=== PATIENT | male | born 1965 | race Caucasian/White ===

== ENCOUNTER 2017-05-30 15:54 | Emergency (ER) | payer SELFPAY ==
[~2017-05-30] VITALS: Ht 175.3 cm; Wt 90.7 kg
--- NOTE | 2017-05-30 15:58 | ER Report ---
History and Physical Time Seen By MD: 15:58 Hx. of Stated Complaint: weak, unable to stand HPI/ROS 51 year old male homeless alcohol dependant male, swelling abdomen and legs acute weakness x 1 week, last alcohol last pm Allergies: Coded Allergies: No Known Drug Allergies (Unverified , 05/30/17) Past Medical/Surgical History alcohol abuse Reviewed Nurses Notes: Yes Old Medical Records Reviewed: No Hx Smoking: Yes Exposure to Second Hand Smoke?: No Hx Substance Use Disorder: No Hx Alcohol Use: Yes Family History of: HTN Constitutional Vital Sign - Last 24 Hours 05/30/17 05/30/17 05/30/17 05/30/17 15:54 15:56 15:56 16:00 Temp 99.3 Pulse 131 Resp 20 B/P (MAP) 123/97 (106) 119/91 119/91 (100) 119/90 (100) Pulse Ox 89 O2 Delivery Room Air 05/30/17 05/30/17 05/30/17 05/30/17 16:09 16:15 16:24 16:30 Pulse 126 125 Resp 24 21 B/P (MAP) 123/91 (102) 113/84 (94) 05/30/17 05/30/17 05/30/17 05/30/17 16:39 16:45 17:30 17:39 Pulse 121 222 Resp 26 24 B/P (MAP) 127/95 (106) 131/100 (110) Pulse Ox 97 96 05/30/17 05/30/17 05/30/17 05/30/17 17:45 17:50 18:00 18:15 Pulse 112 Resp 31 B/P (MAP) 117/89 (98) 98/82 (87) 113/92 (99) Pulse Ox 93 05/30/17 05/30/17 05/30/17 05/30/17 18:20 18:30 18:45 18:50 Pulse 103 46 Resp 21 23 B/P (MAP) 106/82 (90) 111/79 (90) Pulse Ox 93 82 05/30/17 05/30/17 05/30/17 05/30/17 19:00 19:15 19:20 19:30 Pulse 117 Resp 23 B/P (MAP) 113/85 (94) 116/84 (95) 119/89 (99) 2/505/30/17 05/30/17 05/30/17 19:45 19:50 20:00 20:15 Pulse 121 Resp 18 B/P (MAP) 124/91 (102) 119/88 (98) 108/76 (87) 05/30/17 05/30/17 05/30/17 05/30/17 20:20 20:30 20:45 20:50 Pulse 119 122 Resp 15 21 B/P (MAP) 102/81 (88) 118/88 (98) Pulse Ox 91 92 05/30/17 21:00 B/P (MAP) 121/84 (96) Intake and Output 05/30/17 05/30/17 05/31/17 15:00 23:00 07:00 Intake Total 75 ml Balance 75 ml Physical Exam 51 year old male anxious skin is pale warm and dry HEENT head normocephalic/ atraumatic tympanic membranes are on reddened throat is non-reddened mucous membranes are dry neck is supple no JVD heart rate regular no murmurs rubs or gallops lungs are decreased bilateral bases abdomen is protuberant ascites has enlarged liver with palpation bowel sounds hypoactive all quadrants does have peripheral edema 2+ edema bilateral lower extremity Medical Decision Making Data Points Result Diagram: 05/30/17 1550 05/30/17 1550 Laboratory Hematology Test 05/30/17 15:50 05/30/17 16:21 05/30/17 16:55 Red Blood Count 4.17 M/uL (4.00-5.60) Mean Corpuscular Volume 104.1 fL (80.0-96.0) Mean Corpuscular Hemoglobin 36.5 pg (26.0-33.0) Mean Corpuscular Hemoglobin Concent 35.0 g/dL (32.0-36.0) Red Cell Distribution Width 14.8 % (11.5-14.5) Mean Platelet Volume 8.7 fL (7.2-11.1) Neutrophils (%) (Auto) 62.5 % (39.4-72.5) Lymphocytes (%) (Auto) 28.1 % (17.6-49.6) Monocytes (%) (Auto) 7.8 % (4.1-12.4) Eosinophils (%) (Auto) 0.1 % (0.4-6.7) Basophils (%) (Auto) 1.5 % (0.3-1.4) Nucleated RBC Relative Count (auto) 0.2 /100WBC Neutrophils # (Auto) 4.0 K/uL (2.0-7.4) Lymphocytes # (Auto) 1.8 K/uL (1.3-3.6) Monocytes # (Auto) 0.5 K/uL (0.3-1.0) Eosinophils # (Auto) 0.0 K/uL (0.0-0.5) Basophils # (Auto) 0.1 K/uL (0.0-0.1) Nucleated RBC Absolute Count (auto) 0.01 K/uL Prothrombin Time 17.9 seconds (12.0-14.4) Prothromb Time International Ratio 1.45 Activated Partial Thromboplast Time 30 seconds (23-35) D-Dimer Quantitative (PE/DVT) 7.14 ug/ml (0-0.50) Sodium Level 135 mmol/L (137-145) Potassium Level 3.7 mmol/L (3.5-5.0) Chloride Level 97 mmol/L (98-107) Carbon Dioxide Level 18 mmol/L (22-30) Blood Urea Nitrogen 2 mg/dl (9-21) Creatinine 0.60 mg/dl (0.66-1.25) Glomerular Filtration Rate Calc > 60.0 Random Glucose 141 mg/dl (75-110) Calcium Level 8.0 mg/dl (8.4-10.2) Magnesium Level 1.6 mg/dl (1.7-2.2) Total Bilirubin 3.8 mg/dl (0.2-1.3) Aspartate Amino Transf (AST/SGOT) 203 U/L (0-35) Alanine Aminotransferase (ALT/SGPT) 40 U/L (0-56) Alkaline Phosphatase 203 U/L (0-126) Ammonia 18 UMOL/L (9-33) B-Type Natriuretic Peptide 60 pg/ml (0-100) Total Protein 8.8 gm/dl (6.3-8.2) Albumin 3.0 g/dl (3.5-5.0) Amylase Level 73 U/L (0-110) Lipase 63 U/L (23-300) Salicylates Level < 10 mg/L Salicylate Last Dose Date unk Acetaminophen Level < 10 ug/ml Serum Alcohol 184 mg/dl Urine Color Pohebe Urine Clarity Clear Urine pH 5.0 pH (4.8-9.5) Urine Specific Elk 1.020 Urine Protein Negative mg/dL (NEGATIVE) Urine Glucose (UA) Negative mg/dL (NEGATIVE) Urine Ketones 20 mg/dL (NEGATIVE) Urine Blood Negative (NEGATIVE) Urine Nitrite Negative (NEGATIVE) Urine Bilirubin Small (NEGATIVE) Urine Urobilinogen 4.0 mg/dL (0.2-1.9) Urine Leukocyte Esterase Negative (NEGATIVE) Urine RBC 1 /HPF (0-2/HPF) Urine WBC 3 /HPF (0-5/HPF) Urine Squamous Epithelial Cells Many /LPF (</=FEW) Urine Bacteria Few /HPF (NONE-FEW) Urine Hyaline Casts Many /LPF (NONE-FEW) Urine Mucus Few /HPF (NONE-FEW) Urine Opiates Screen Negative Urine Barbiturates Screen Negative Ur Tricyclic Antidepressants Screen Negative Urine Phencyclidine Screen Negative Urine Amphetamines Screen Negative Urine Benzodiazepines Screen Negative Urine Cocaine Screen Negative Urine Cannabinoids Screen Negative Chemistry Test 05/30/17 15:50 05/30/17 16:21 05/30/17 16:55 White Blood Count 6.5 k/uL (4.5-11.0) Red Blood Count 4.17 M/uL (4.00-5.60) Hemoglobin 15.2 g/dL (14.0-18.0) Hematocrit 43.4 % (42.0-52.0) Mean Corpuscular Volume 104.1 fL (80.0-96.0) Mean Corpuscular Hemoglobin 36.5 pg (26.0-33.0) Mean Corpuscular Hemoglobin Concent 35.0 g/dL (32.0-36.0) Red Cell Distribution Width 14.8 % (11.5-14.5) Platelet Count 79 K/uL (150-450) Mean Platelet Volume 8.7 fL (7.2-11.1) Neutrophils (%) (Auto) 62.5 % (39.4-72.5) Lymphocytes (%) (Auto) 28.1 % (17.6-49.6) Monocytes (%) (Auto) 7.8 % (4.1-12.4) Eosinophils (%) (Auto) 0.1 % (0.4-6.7) Basophils (%) (Auto) 1.5 % (0.3-1.4) Nucleated RBC Relative Count (auto) 0.2 /100WBC Neutrophils # (Auto) 4.0 K/uL (2.0-7.4) Lymphocytes # (Auto) 1.8 K/uL (1.3-3.6) Monocytes # (Auto) 0.5 K/uL (0.3-1.0) Eosinophils # (Auto) 0.0 K/uL (0.0-0.5) Basophils # (Auto) 0.1 K/uL (0.0-0.1) Nucleated RBC Absolute Count (auto) 0.01 K/uL Prothrombin Time 17.9 seconds (12.0-14.4) Prothromb Time International Ratio 1.45 Activated Partial Thromboplast Time 30 seconds (23-35) D-Dimer Quantitative (PE/DVT) 7.14 ug/ml (0-0.50) Glomerular Filtration Rate Calc > 60.0 Calcium Level 8.0 mg/dl (8.4-10.2) Magnesium Level 1.6 mg/dl (1.7-2.2) Total Bilirubin 3.8 mg/dl (0.2-1.3) Aspartate Amino Transf (AST/SGOT) 203 U/L (0-35) Alanine Aminotransferase (ALT/SGPT) 40 U/L (0-56) Alkaline Phosphatase 203 U/L (0-126) Ammonia 18 UMOL/L (9-33) B-Type Natriuretic Peptide 60 pg/ml (0-100) Total Protein 8.8 gm/dl (6.3-8.2) Albumin 3.0 g/dl (3.5-5.0) Amylase Level 73 U/L (0-110) Lipase 63 U/L (23-300) Salicylates Level < 10 mg/L Salicylate Last Dose Date unk Acetaminophen Level < 10 ug/ml Serum Alcohol 184 mg/dl Urine Color Phoebe Urine Clarity Clear Urine pH 5.0 pH (4.8-9.5) Urine Specific Elk 1.020 Urine Protein Negative mg/dL (NEGATIVE) Urine Glucose (UA) Negative mg/dL (NEGATIVE) Urine Ketones 20 mg/dL (NEGATIVE) Urine Blood Negative (NEGATIVE) Urine Nitrite Negative (NEGATIVE) Urine Bilirubin Small (NEGATIVE) Urine Urobilinogen 4.0 mg/dL (0.2-1.9) Urine Leukocyte Esterase Negative (NEGATIVE) Urine RBC 1 /HPF (0-2/HPF) Urine WBC 3 /HPF (0-5/HPF) Urine Squamous Epithelial Cells Many /LPF (</=FEW) Urine Bacteria Few /HPF (NONE-FEW) Urine Hyaline Casts Many /LPF (NONE-FEW) Urine Mucus Few /HPF (NONE-FEW) Urine Opiates Screen Negative Urine Barbiturates Screen Negative Ur Tricyclic Antidepressants Screen Negative Urine Phencyclidine Screen Negative Urine Amphetamines Screen Negative Urine Benzodiazepines Screen Negative Urine Cocaine Screen Negative Urine Cannabinoids Screen Negative Coagulation Test 05/30/17 15:50 Prothrombin Time 17.9 seconds Prothromb Time International Ratio 1.45 Activated Partial Thromboplast Time 30 seconds D-Dimer Quantitative (PE/DVT) 7.14 ug/ml Toxicology Test 05/30/17 15:50 05/30/17 16:55 Salicylates Level < 10 mg/L Salicylate Last Dose Date unk Acetaminophen Level < 10 ug/ml Serum Alcohol 184 mg/dl Urine Opiates Screen Negative Urine Barbiturates Screen Negative Ur Tricyclic Antidepressants Screen Negative Urine Phencyclidine Screen Negative Urine Amphetamines Screen Negative Urine Benzodiazepines Screen Negative Urine Cocaine Screen Negative Urine Cannabinoids Screen Negative Urinalysis Test 05/30/17 16:55 Urine Color Phoebe Urine Clarity Clear Urine pH 5.0 pH (4.8-9.5) Urine Specific Elk 1.020 Urine Protein Negative mg/dL (NEGATIVE) Urine Glucose (UA) Negative mg/dL (NEGATIVE) Urine Ketones 20 mg/dL (NEGATIVE) Urine Blood Negative (NEGATIVE) Urine Nitrite Negative (NEGATIVE) Urine Bilirubin Small (NEGATIVE) Urine Urobilinogen 4.0 mg/dL (0.2-1.9) Urine Leukocyte Esterase Negative (NEGATIVE) Urine RBC 1 /HPF (0-2/HPF) Urine WBC 3 /HPF (0-5/HPF) Urine Squamous Epithelial Cells Many /LPF (</=FEW) Urine Bacteria Few /HPF (NONE-FEW) Urine Hyaline Casts Many /LPF (NONE-FEW) Urine Mucus Few /HPF (NONE-FEW) EKG/Imaging Imaging FACILITY: [facility] [place] PATIENT NAME: Donte Robles : 1965 MR: [id number] V: [id number] EXAM DATE: [id number] ORDERING PHYSICIAN: CLAU JACOB TECHNOLOGIST: Location: [facility] Patient: Donte Robles : 1965 Visit/Account:[id number] Date of Sevice: 05/30/2017 CHEST SINGLE AP History: sob FINDINGS: Comparison studies: None. Tubes and Lines: None. Lungs and pleura: Equivocal findings for subtle airspace opacity left lower lobe. Lungs otherwise well-aerated. Mediastinum: Patient is rotated slightly to the right which might account for the apparent mild mediastinal prominence. I cannot, however, exclude possible mass in the azygos esophageal recess. Cardiac silhouette: normal . Osseous structures: Unremarkable for age . IMPRESSION: Equivocal findings for subtle infiltrate left lower lobe. Mediastinal prominence possibly due to portable technique and patient positioning but cannot exclude as ago esophageal recess mass. I note that a chest CTA is currently pending which should be able to definitively evaluate both above areas. Report Dictated By: Pal Rodgers MD at 05/30/2017 5:06 PM Report E-Signed By: Pal Rodgers MD at 05/30/2017 5:10 PM WSN:[id number]: [facility] [place] PATIENT NAME: Donte Robles : 1965 MR: [id number] V: [id number] EXAM DATE: [id number] ORDERING PHYSICIAN: CLAU JACOB TECHNOLOGIST: Location: [facility] Patient: Donte Robles : 1965 Visit/Account:[id number] Date of Sevice: 05/30/2017 ABDOMEN/PELVIS WITH CONTRAST HISTORY: Abdomen pain, shortness of breath TECHNIQUE: Following administration of IV contrast contiguous axial images acquired through the abdomen/pelvis. Coronal and sagittal reformatting also performed. Dose Lowering Technique One of the following dose optimization techniques was utilized in the performance of this exam: Automated exposure control; adjustment of the mA and/ or kV according to the patient's size; or use of an iterative reconstruction technique. Specific details can be referenced in the facility's radiology CT exam operational policy. CONTRAST: 100 mL Isovue-370 COMPARISON: None. FINDINGS: Visualized lung bases: There is a small posterior layering left pleural effusion with compressive atelectasis in the adjacent left lower lobe. Small amount linear stranding in the right lung base as well likely represent additional atelectasis. . Hepatobiliary: The liver is extremely heterogeneous . There are multiple hypoattenuating hepatic lesions of the largest is in the lateral segment left lobe measuring 3.1 cm in diameter. The hepatic veins appear extremely attenuated which is likely related to hepatocellular disease. There are multiple hypoattenuating lobular masses interposed between the liver and the gallbladder the gallbladder fossa. There is layering opaque material within the gallbladder which may represent stones or sludge. There is no evidence of biliary ductal dilatation Spleen: Negative. Adrenals: Negative. Pancreas: Negative. Kidneys ureters or bladder: Negative. Genitalia: Negative. GI: The wall of the cecum and right-sided the colon appears thickened although decompressed and not ideally evaluated. The distal esophagus appears thickened Vessels/spaces/nodes: There are numerous collateral vessels in the upper abdomen . There are enlarged retroperitoneal lymph nodes. [employer] lymph node measures 1.5 x 1 x 2 cm Bones/soft tissues: There is an umbilical hernia filled with ascites. There is an additional subcutaneous fluid collection of ascites just above the umbilicus likely ascites entering through a tiny ventral hernia. Additional findings: There is a large amount of abdominal and pelvic ascites present IMPRESSION: Small posterior layering left pleural effusion with compressive atelectasis left lower lobe. Small amount of linear atelectasis the right lung base as well The liver is extremely heterogeneous. There are multiple hypoattenuating masses within the liver and multiple hypoattenuating lobular masses in the gallbladder fossa interposed between the liver and gallbladder. This could represent primary gallbladder malignancy versus other malignancy. Layering stones and sludge within the gallbladder Large amount of abdominal and pelvic ascites. The wall of the cecum and right- sided colon appears thickened although decompressed and not ideally evaluated. This could be secondary to the ascites The distal esophagus appears thickened which could be inflammatory versus neoplastic Numerous collateral vessels in the upper abdomen Enlarged retroperitoneal lymph nodes Results were called to CLAU JACOB at 05/30/2017 6:05 PM. Report Dictated By: Anabel Woods MD at 05/30/2017 5:40 PM Report E-Signed By: Anabel Woods MD at 05/30/2017 6:08 PM WSN:[id number]: [facility] [place] PATIENT NAME: Donte Robles : 1965 MR: [id number] V: [id number] EXAM DATE: ORDERING PHYSICIAN: CLAU JACOB TECHNOLOGIST: Location: [facility] Patient: Donte Robles : 1965 Visit/Account:[id number] Date of Sevice: 05/30/2017 CTA CHEST WW/O CNTR (PULM ANG) HISTORY: sob ADDITIONAL HISTORY: None TECHNIQUE: CTA chest with intravenous contrast. Axial imaging acquired following administration of IV contrast timed for maximum opacification of the pulmonary arterial vasculature. Slab 3-D MIP reconstructed images were also created for further evaluation and interpretation. Reconstruction of the source data set includes multiplanar 2-D in the sagittal and coronal planes and 3-D reconstructed coronal slab MIP series. 3-D images were created by the technologist. One of the following dose optimization techniques was utilized in the performance of this exam: Automated exposure control; adjustment of the mA and/or kV according to the patient's size; or use of an iterative reconstruction technique. Specific details can be referenced in the facility's radiology CT exam operational policy. CONTRAST: 100 mL Isovue-370 COMPARISON: None. FINDINGS: Lungs/pleura: There is a small left-sided pleural effusion and mild left basilar consolidation which is probably represents atelectasis. Mild discoid atelectasis seen in the right upper lobe. The right lung is otherwise well- aerated. Heart/vessels: Negative. There are no filling defects seen in the pulmonary arteries worrisome for a pulmonary embolus. Mediastinum/lymph nodes: Negative. Visualized upper abdomen: See accompanying CT abdomen/pelvis regarding ascites and advanced hepatic steatosis as well as additional findings. Bones/soft tissues: Negative. Additional findings: Distal esophageal wall appears thickened IMPRESSION: Examination negative for pulmonary embolus. Small left pleural effusion and left lower lobe and right upper lobe atelectasis. Pneumonia less likely. Cannot exclude esophagitis. Report Dictated By: Pal Rodgers MD at 05/30/2017 6:00 PM Report E-Signed By: Pal Rodgers MD at 05/30/2017 6:06 PM ED Course/Re-evaluation Clinical Indication for ER IV: Hydration ED Course IV normal saline 100 mL an hour was given fentanyl 50 mics IV for pain and Zofran 4 mg IV for nausea and Ativan 1 mg for anxiety Re-evaluation Discussed patient with Dr. swanson surgeon on-call he asked for us to transfer patient to [facility] Dr. Randall agrees to accept patient to oncology aguilar Decision to Disposition Date: May 30, 2017 Decision to Disposition Time: 19:12 Depart Departure Latest Vital Signs Vital Signs Date Time Temp Pulse Resp B/P (MAP) Pulse Ox O2 Delivery O2 Flow Rate FiO2 05/30/17 21:00 121/84 (96) 05/30/17 20:50 122 21 92 05/30/17 15:56 99.3 Room Air Impression: Primary Impression: Liver mass Additional Impressions: Carcinoma of gall bladder Ascites Condition: Condition Unchanged Disposition: [facility] TO [facility] Problem Qualifiers CLAU JACOB May 30, 2017 15:58
[2017-05-30] MEDS ORDERED: NS(*) 0.9% 1000 ML BAG 1,000 ML IV ONE (16:04)
[2017-05-30] MEDS ORDERED: ONDANSETRON 4 MG/2 ML VIAL IVP ONE (16:05)
[2017-05-30] MEDS ORDERED: PANTOPRAZOLE SOD 40 MG IV VIAL IVP ONE (16:05)
[2017-05-30] MEDS ORDERED: THIAMINE HCL(*) 200 MG/2 ML IN 100 MG, FOLIC ACID(*) 50 MG/10 ML INJ 1 MG, MULTIVITAMIN... IV ONE (16:10)
[2017-05-30 16:18] LABS: PLATELET COUNT, AUTOMATED 79 K/uL (150-450)
--- NOTE | 2017-05-30 16:18 | EKG ---
FACILITY: [facility] [place] PATIENT NAME: JONO DILLARD : [id number] MR: [id number] V: [id number] EXAM DATE: ORDERING PHYSICIAN: CLAU JACOB TECHNOLOGIST: ADRI Hudson Reason : RESPIRATORY Blood Pressure : / mmHG Vent. Rate : 126 BPM Atrial Rate : 126 BPM P-R Int : 096 ms QRS Dur : 076 ms QT Int : 410 ms P-R-T Axes : 000 012 014 degrees QTc Int : 593 ms Sinus tachycardia with short AL Nonspecific T wave abnormality Abnormal ECG No previous ECGs available Confirmed by MALIK BARRERA ([id number]) on 05/31/2017 5:39:59 AM Referred By: NIDIA Confirmed By:MALIK BARRERA
[2017-05-30 16:28] LABS: INR 1.45
[2017-05-30] MEDS ORDERED: NS 0.9% 20 ML SDV 100 ML ONE (17:07)
[2017-05-30] MEDS ORDERED: IOPAMIDOL 76% 100 ML INFUS BTL 100 ML ONE (17:07)
--- NOTE | 2017-05-30 17:14 | RADIOLOGY IMAGING REPORT ---
[place] [facility] [place] NAME: Donte Robles : 1965 MR: [id number] V: [id number] EXAM DATE: ORDERING PHYSICIAN: CLAU JACOB TECHNOLOGIST: Location: [facility] Patient: Donte Robles : 1965 Visit/Account:[id number] Date of Sevice: 05/30/2017 CHEST SINGLE AP History: sob FINDINGS: Comparison studies: None. Tubes and Lines: None. Lungs and pleura: Equivocal findings for subtle airspace opacity left lower lobe. Lungs otherwise w ell-aerated. Mediastinum: Patient is rotated slightly to the right which might account for the apparent mild medi astinal prominence. I cannot, however, exclude possible mass in the azygos esophageal recess. Cardiac silhouette: normal . Osseous structures: Unremarkable for age . IMPRESSION: Equivocal findings for subtle infiltrate left lower lobe. Mediastinal prominence possibly due to portable technique and patient positioning but cannot exclude as ago esophageal recess mass. I note that a chest CTA is currently pending which should be able to definitively evaluate both above areas. Report Dictated By: Pal Rodgers MD at 05/30/2017 5:06 PM Report E-Signed By: Pal Rodgers MD at 05/30/2017 5:10 PM WSN:[id number]
--- NOTE | 2017-05-30 18:10 | RADIOLOGY IMAGING REPORT ---
FACILITY: [facility] [place] PATIENT NAME: Donte Robles : 1965 MR: [id number] V: [id number] EXAM DATE: ORDERING PHYSICIAN: CLAU JACOB TECHNOLOGIST: Location: [facility] Patient: Donte Robles : 1965 Visit/Account:[id number] Date of Sevice: 05/30/2017 CTA CHEST WW/O CNTR (PULM ANG) HISTORY: sob ADDITIONAL HISTORY: None TECHNIQUE: CTA chest with intravenous contrast. Axial imaging acquired following administration of IV contrast timed for maximum opacification of the pulmonary arterial vasculature. Slab 3-D MIP boaz nstructed images were also created for further evaluation and interpretation. Reconstruction of the [facility] data set includes multiplanar 2-D in the sagittal and coronal planes and 3-D reconstructed sarah nal slab MIP series. 3-D images were created by the technologist. One of the following dose optimiz ation techniques was utilized in the performance of this exam: Automated exposure control; adjustment of the mA and/or kV according to the patient's size; or use of an iterative reconstruction techniqu e. Specific details can be referenced in the facility's radiology CT exam operational policy. CONTRAST: 100 mL Isovue-370 COMPARISON: None. FINDINGS: Lungs/pleura: There is a small left-sided pleural effusion and mild left basilar consolidation which is probably represents atelectasis. Mild discoid atelectasis seen in the right upper lobe. The right lung is otherwise well-aerated. Heart/vessels: Negative. There are no filling defects seen in the pulmonary arteries worrisome for a pulmonary embolus. Mediastinum/lymph nodes: Negative. Visualized upper abdomen: See accompanying CT abdomen/pelvis regarding ascites and advanced hepatic steatosis as well as additional findings. Bones/soft tissues: Negative. Additional findings: Distal esophageal wall appears thickened IMPRESSION: Examination negative for pulmonary embolus. Small left pleural effusion and left lower lobe and right upper lobe atelectasis. Pneumonia less like ly. Cannot exclude esophagitis. Report Dictated By: Pal Rodgers MD at 05/30/2017 6:00 PM Report E-Signed By: Pal Rodgers MD at 05/30/2017 6:06 PM WSN:[id number]
--- NOTE | 2017-05-30 18:13 | RADIOLOGY IMAGING REPORT ---
FACILITY: [facility] [place] PATIENT NAME: Donte Robles : 1965 MR: [id number] V: [id number] EXAM DATE: ORDERING PHYSICIAN: CLAU JACOB TECHNOLOGIST: Location: [facility] Patient: Donte Robles : 1965 Visit/Account:[id number] Date of Sevice: 05/30/2017 ABDOMEN/PELVIS WITH CONTRAST HISTORY: Abdomen pain, shortness of breath TECHNIQUE: Following administration of IV contrast contiguous axial images acquired through the abdom en/pelvis. Coronal and sagittal reformatting also performed. Dose Lowering Technique One of the following dose optimization techniques was utilized in the performance of this exam: Autom ated exposure control; adjustment of the mA and/or kV according to the patient's size; or use of an i terative reconstruction technique. Specific details can be referenced in the facility's radiology C T exam operational policy. CONTRAST: 100 mL Isovue-370 COMPARISON: None. FINDINGS: Visualized lung bases: There is a small posterior layering left pleural effusion with compressive at electasis in the adjacent left lower lobe. Small amount linear stranding in the right lung base as w ell likely represent additional atelectasis. . Hepatobiliary: The liver is extremely heterogeneous . There are multiple hypoattenuating hepatic l esions of the largest is in the lateral segment left lobe measuring 3.1 cm in diameter. The hepatic veins appear extremely attenuated which is likely related to hepatocellular disease. There are multi ple hypoattenuating lobular masses interposed between the liver and the gallbladder the gallbladder f ayah. There is layering opaque material within the gallbladder which may represent stones or sludge. There is no evidence of biliary ductal dilatation Spleen: Negative. Adrenals: Negative. Pancreas: Negative. Kidneys ureters or bladder: Negative. Genitalia: Negative. GI: The wall of the cecum and right-sided the colon appears thickened although decompressed and not ideally evaluated. The distal esophagus appears thickened Vessels/spaces/nodes: There are numerous collateral vessels in the upper abdomen . There are enlarged retroperitoneal lymph nodes. World Language Teacher lymph node measures 1.5 x 1 x 2 cm Bones/soft tissues: There is an umbilical hernia filled with ascites. There is an additional subcut aneous fluid collection of ascites just above the umbilicus likely ascites entering through a tiny ve ntral hernia. Additional findings: There is a large amount of abdominal and pelvic ascites present IMPRESSION: Small posterior layering left pleural effusion with compressive atelectasis left lower lobe. Small a mount of linear atelectasis the right lung base as well The liver is extremely heterogeneous. There are multiple hypoattenuating masses within the liver and multiple hypoattenuating lobular masses in the gallbladder fossa interposed between the liver and ga llbladder. This could represent primary gallbladder malignancy versus other malignancy. Layering stones and sludge within the gallbladder Large amount of abdominal and pelvic ascites. The wall of the cecum and right-sided colon appears th ickened although decompressed and not ideally evaluated. This could be secondary to the ascites The distal esophagus appears thickened which could be inflammatory versus neoplastic Numerous collateral vessels in the upper abdomen Enlarged retroperitoneal lymph nodes Results were called to CLAU JACOB at 05/30/2017 6:05 PM. Report Dictated By: Anabel Woods MD at 05/30/2017 5:40 PM Report E-Signed By: Anabel Woods MD at 05/30/2017 6:08 PM JARETN:[email or web address]
[2017-05-30] MEDS ORDERED: LORazepam 2 MG/ML VIAL IVP ONE (19:15)
--- NOTE | 2017-05-30 19:26 | RADIOLOGY IMAGING REPORT ---
FACILITY: [facility] [place] PATIENT NAME: Donte Robles : 1965 MR: [id number] V: [id number] EXAM DATE: ORDERING PHYSICIAN: CLAU JACOB TECHNOLOGIST: Location: [facility] Patient: Donte Robles : 1965 Visit/Account:[id number] Date of Sevice: 05/30/2017 EXAMINATION: Bilateral LOWER EXTREMITY VENOUS DOPPLER ULTRASOUND DATE: 05/30/2017 7:11 PM CLINICAL INFORMATION: Evaluate for DVT. REASON FOR STUDY: swelling legs TECHNIQUE: Grayscale, color Doppler, and spectral Doppler ultrasound was performed of the lower extre mity veins to evaluate for deep venous thrombosis. COMPARISON: None FINDINGS: The bilateral common femoral, femoral, and popliteal veins are compressible with normal flow on color Doppler imaging. There is also normal Doppler flow of the profunda femoris and greater saphenous vei ns at the confluence with the common femoral vein. The bilateral posterior tibial and peroneal veins demonstrate normal flow IMPRESSION: No evidence of deep venous thrombosis in the bilateral lower extremity veins. Report Dictated By: Osvaldo Kimball MD at 05/30/2017 7:11 PM Report E-Signed By: Osvaldo Kimball MD at 05/30/2017 7:22 PM WSN:[id number]
[2017-05-30 21:00] VITALS: BP 121/84
== END 2017-05-30 21:15 | disposition short-term general hospital (02) ==
LOC: ER 16:01
DX: C23 Malignant neoplasm of gallbladder (principal); R16.0 Hepatomegaly, not elsewhere classified; R18.8 Other ascites; R00.0 Tachycardia, unspecified; R06.02 Shortness of breath
CPT/HCPCS: 36415; 71045; 71275; 74177; 80305; 80320; 80329; 81001; 82140; 82150; 83690; 83735; 83880; 84443; 85025; 85379; 85610; 85730; 93005; 93970; 99285; C9113; J2060; J2405; J3411; J3475; J7030; J7050; Q9967; 82040; 82247; 82310; 82374; 82435; 82565; 82947; 84075; 84132; 84155; 84295; 84450; 84460; 84520

== ENCOUNTER → 2017-05-30 | Outpatient (CLI) | payer SELFPAY | LOC: AMB 15:29 | PROVIDERS: ATTEND Nurse Practitioner | DX: R19.00 Intra-abdominal and pelvic swelling, mass and lump, unspecified site (principal); R60.0 Localized edema; E11.9 Type 2 diabetes mellitus without complications | CPT/HCPCS: A0425; A0427 ==

== ENCOUNTER → 2017-05-30 | Outpatient (CLI) | payer SELFPAY | LOC: AMB 20:51 | PROVIDERS: ATTEND Nurse Practitioner | DX: R19.00 Intra-abdominal and pelvic swelling, mass and lump, unspecified site (principal) | CPT/HCPCS: A0425; A0433 ==

== ENCOUNTER → 2017-10-21 | Outpatient (CLI) | payer SELFPAY ==
[~2017-10-21] MED LIST: B12/1TAB PO; FURO40TA35 PO; GLIP-130 PO; INSU100V24 SQ; METF-411 PO; MULT-1379 PO; POTA20PA25 PO; SITA100T PO; SPIR25TA78 PO; TRAM-420 PO; TRIA15CR40 TP; TRIA15OI20 TP
[2017-10-22 13:22] VITALS: BMI 21.7
== END ==
LOC: AMB 11:44
PROVIDERS: ATTEND Nurse Practitioner
DX: R41.82 Altered mental status, unspecified (principal); R73.9 Hyperglycemia, unspecified; R47.81 Slurred speech
CPT/HCPCS: A0425; A0427

== ENCOUNTER 2017-10-24 15:45 | Outpatient (RCR) | payer SELFPAY ==
[2017-10-22 13:22] VITALS: BMI 21.7
[~2017-10-24 15:45] MED LIST changes: -B12/1TAB PO; -GLIP-130 PO; -INSU100V24 SQ; -MULT-1379 PO; -SITA100T PO; -SPIR25TA78 PO; +SPIR25TA80 PO; -TRIA15CR40 TP; -TRIA15OI20 TP
--- NOTE | 2017-10-25 11:33 | Transitional Care Management ---
TCM Discharge Criteria Transitional Care Comment: 10/24 Donte has been living at the [facility] with assistance from [facility], Maureen Luis, goes to [facility] for medical services and the [facility] for meds. Isma Finney [facility] sees him almost daily regarding Federal/State assistance w [employer] waiver. 10/25 transferred to another unit will contact when ANGEL Cha Oct 25, 2017 11:33
[2017-10-27] MEDS ORDERED: B12/1TAB PO (10:20)
[2017-10-27] MEDS ORDERED: GLIP-130 PO (10:20)
[2017-10-27] MEDS ORDERED: SITA100T PO (10:21)
[2017-10-27] MEDS ORDERED: TRIA15OI20 TP (10:24)
[2017-10-27] MEDS ORDERED: TRIA15CR40 TP (10:30)
[2017-10-27] MEDS ORDERED: MULT-1379 PO (10:31)
[2017-10-27] MEDS ORDERED: INSU100V24 SQ (10:32)
--- NOTE | 2017-11-02 10:35 | Transitional Care Management ---
TCM Discharge Criteria Transitional Care Comment: 10/24 Donte has been living at the [facility] with assistance from [facility], [facility], goes to [facility] for medical services and the [employer] for meds. [facility] him almost daily regarding Federal/State assistance w Hospice Educator waiver. 10/25 transferred to another unit will contact when dc'd 11/02 have emailed Donte twice per his preferred contact request. have not received response to my emails. TALI ANDRE Nov 02, 2017 10:35
--- NOTE | 2017-11-03 13:59 | Transitional Care Management ---
TCM Discharge Criteria Transitional Care Comment: 10/24 Donte has been living at the [facility] with [facility], [facility], goes to [facility], [facility] for medical services and the [employer] for meds. [facility] sees him almost daily regarding Federal/State assistance w Digital Sales Director waiver. 10/25 transferred to another unit will contact when dc'd 11/02 have emailed Donte twice per his preferred contact request. have not received response to my emails. 11/03 emailed Donte sagastume no response at this time. ANGEL NDIAYE Nov 03, 2017 13:59
--- NOTE | 2017-11-07 14:09 | Transitional Care Management ---
TCM Discharge Criteria Transitional Care Comment: 10/24 Donte has been living at the [facility] with assistance from [facility], [facility], goes to [facility] for medical services and the [employer] for meds. Isma [facility] sees him almost daily regarding Federal/State assistance w Instrumentation Designer waiver. 10/25 transferred to another unit will contact when dc'd 11/02 have emailed Donte twice per his preferred contact request. have not received response to my emails. 11/03 emailed Donte w no response at this time. 11/05, Have attempted to contact Donte through e-mail as per his request but he has not repied to any of our requests for return phone calls. Will DC him from the program ANGEL NDIAYE Nov 07, 2017 14:09
== END 2017-11-08 07:11 | disposition home or self-care (01) ==
LOC: TCM 15:45
PROVIDERS: ATTEND Nurse Practitioner
DX: Z02.9 Encounter for administrative examinations, unspecified (principal)

== ENCOUNTER 2017-10-24 18:00 | Inpatient (IN) | payer SELFPAY ==
[2017-10-22 13:22] VITALS: Ht 177.8 cm; Wt 64.9 kg
[~2017-10-24] VITALS: Ht 177.8 cm; Wt 64.9 kg
[~2017-10-24 18:00] MED LIST changes: +SPIR25TA78 PO; -SPIR25TA80 PO
[2017-10-24] MEDS ORDERED: MAG HYD/AL HYD/SIMETH 30ML UDC PO PRN (19:40)
[2017-10-24] MEDS ORDERED: WATER FOR INJECTION 10 ML VIAL IM ONLY PRN (19:45)
[2017-10-24] MEDS ORDERED: OLANZapine 5 MG TAB PO PRN (19:45)
[2017-10-24] MEDS ORDERED: diphenhydrAMINE 25 MG CAP PO PRN (19:45)
[2017-10-24] MEDS ORDERED: LORazepam 1 MG TAB PO PRN (19:45)
[2017-10-24] MEDS ORDERED: diphenhydrAMINE 50 MG/ML VIAL IM PRN (19:45)
[2017-10-24] MEDS ORDERED: OLANZapine 10 MG VIAL IM ONLY PRN (19:45)
[2017-10-24] MEDS ORDERED: LORazepam 2 MG/ML VIAL IM PRN (19:45)
[2017-10-24] MEDS: INSULIN HUM LISPRO 100 UN/ML 3 ML VIAL SUBQ PRN (19:51)
--- NOTE | 2017-10-24 20:47 | EKG ---
FACILITY: [facility] [place] PATIENT NAME: JONO DILLARD : [id number] MR: [id number] V: [id number] EXAM DATE: ORDERING PHYSICIAN: VIOLETA GARCIAS TECHNOLOGIST: JESSICA Hudson Reason : Blood Pressure : / mmHG Vent. Rate : 081 BPM Atrial Rate : 081 BPM P-R Int : 134 ms QRS Dur : 076 ms QT Int : 402 ms P-R-T Axes : 058 004 029 degrees QTc Int : 466 ms Sinus rhythm with sinus arrhythmia with occasional premature ventricular complexes Possible Left atrial enlargement Borderline ECG When compared with ECG of 21-OCT-2017 14:07, Questionable change in QRS axis Confirmed by DEONTE DIEGO ([id number]) on 10/25/2017 7:47:07 AM Referred By: Confirmed By:DEONTE DIEGO
[2017-10-24] MEDS: TRIAMCINOLONE ACE 0.1% CR 80GM TP SCH (21:34)
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
[2017-10-24 22:36] VITALS: BP 83/60
[2017-10-25 05:34] VITALS: BP 80/50
--- NOTE | 2017-10-25 07:51 | Hospitalist Progress Note ---
Subjective Progress Notes Subjective This patient was transferred to psychiatry last evening. Physical Exam Vital Signs Date Time Temp Pulse Resp B/P (MAP) Pulse Ox O2 Delivery O2 Flow Rate FiO2 10/25/17 05:34 98.1 81 80/50 (60) 98 Room Air Cardiovascular: Regular Rate and Rhythm Respiratory: Clear to Auscultation Assessment and Plan Problems: (1) DM (diabetes mellitus), type 2, uncontrolled Status: Acute Assessment & Plan: He is on treatment with glipizide and Januvia. Metformin was added today. He remains on sliding scale level #3. Consideration may be given to decreasing fingerstick glucose monitoring to twice daily once his sugars are consistently below 200. DEONTE DIEGO DO Oct 25, 2017 07:51
[2017-10-25] MEDS: INSULIN HUM LISPRO 100 UN/ML 3 ML VIAL SUBQ PRN ×3 (08:03→17:32)
[2017-10-25] MEDS: metFORMIN HCL 500 MG TAB PO SCH ×2 (08:08→17:31)
[2017-10-25] MEDS: TRIAMCINOLONE ACE 0.1% CR 80GM TP SCH ×2 (08:09→20:31)
[2017-10-25] MEDS: glipiZIDE 5 MG TAB PO SCH (08:09)
[2017-10-25] MEDS: FOLIC ACID 1 MG TAB PO SCH (08:09)
[2017-10-25] MEDS: THIAMINE HCL 100 MG TAB PO SCH (08:10)
[2017-10-25] MEDS: MULTIVITAMINS PO SCH (08:10)
[2017-10-25 14:15] VITALS: BP 101/72
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
[2017-10-25] MEDS: traZODone HCL 50 MG TAB PO PRN (20:31)
[2017-10-25 22:12] VITALS: BP 101/58
[2017-10-26 05:40] VITALS: BP 94/65
[2017-10-26] MEDS: TRIAMCINOLONE ACE 0.1% CR 80GM TP SCH ×2 (08:06→21:00)
[2017-10-26] MEDS: metFORMIN HCL 500 MG TAB PO SCH ×2 (08:07→17:38)
[2017-10-26] MEDS: THIAMINE HCL 100 MG TAB PO SCH (08:07)
[2017-10-26] MEDS: FOLIC ACID 1 MG TAB PO SCH (08:07)
[2017-10-26] MEDS: MULTIVITAMINS PO SCH (08:07)
[2017-10-26] MEDS: glipiZIDE 5 MG TAB PO SCH (08:07)
[2017-10-26] MEDS: INSULIN HUM LISPRO 100 UN/ML 3 ML VIAL SUBQ PRN ×3 (08:09→17:53)
[2017-10-26 11:20] VITALS: BP 92/56
--- NOTE | 2017-10-26 13:06 | BHS Progress Note ---
[facility] - Subjective Progress Notes Subjective Patient cooperative today, and any gross cognitive impairment, associated with uncontrolled diabetes, appears to have resolved. Patient notably indicating less than a full desire to adequately care for diabetes by requesting various food items on the unit. No other concerns, hospitalist may restart diuretic. Hearing tomorrow. Suicidal Ideation: None Homicidal Ideation: None [facility] - Objective Physical Exam Vital Signs Hematology Test 10/26/17 12:03 Whole Blood Glucose 203 mg/DL (75-110) Chemistry Test 10/26/17 12:03 Whole Blood Glucose 203 mg/DL (75-110) Vital Signs Date Time Temp Pulse Resp B/P (MAP) Pulse Ox O2 Delivery O2 Flow Rate FiO2 10/26/17 11:20 98.0 86 92/56 (68) 99 Room Air 10/25/17 14:15 16 Muscle Strength and Tone: Other (impaired) Gait and Station: Unsteady (use of walker) [facility] Medications Reviewed: Side Effects, Benefits of Medication, Risks Allergies Reviewed: Yes Mental Status Exam General Appearance: Casual, Good Eye Contact, Polite, Good Interaction, No Tearful, No Psychomotor Agitation, Psychomotor Retardation, No Bizarre Mannerisms, No Tics Speech: Clear, Normal Volume, Normal Tone, Rambling Mood: Dysthmic/Depressed (frustrated) Affect: Calm, Neutral, No Tearful, No Anxious, No Agitated Thought Process: Goal Directed (wants to leave hospital), No Loose Associations , No Flight of Ideas, Other (confusion resolving) Thought Content: No Suicidal Ideation, No Homicidal Ideation, No Delusions, No Auditory Halllucinations, No Visual Hallucinations, No Thought Broadcasting, No Ideas of Reference, No Obsessions, No Compulsions Sensorium: Clear Cognition: Alert & Oriented-Person, Alert & Oriented-Place, Alert & Oriented- Time, No Tfafa-Vgnzqxsb-Jjjgnsadi (partially) Memory: Immediate, Recent, Remote Intelligence: Average Insight Judgment: Poor (does not appear to understand medical illness to the degree in which he could,) [facility] Assessment and Plan Jace-[id number]-Dtbx Encounter Date: Oct 26, 2017 Wgne-al-Rhwv Encounter Time: 11:30 [facility] Plan: Necessary Precautions, Individual/Group Therapy, Admin/Titrate Meds, Educate Patient Tobacco Medications: Not Appropriate Condition Multpiple Antipsychotics Used: No Problems: (1) Cognitive impairment Optional Permanent Comment: secondary to uncontrolled diabetes. resolving now. rule out personality disorder. Last Edited By: Violeta Garcias on Oct 26, 2017 13:04 Status: Acute (2) DM (diabetes mellitus), type 2, uncontrolled Optional Permanent Comment: patient on sliding scale, will continue to follow for stabilization if eventually possible in the absence of insulin. Last Edited By: Violeta Garcias on Oct 26, 2017 13:03 Status: Chronic Condition 1. continue treatment. 2. hearing tomorrow, questionable ability to care for self. Problem Qualifiers (1) DM (diabetes mellitus), type 2, uncontrolled: Diabetes mellitus custodial insulin use: without custodial use Diabetes mellitus complication status: with hyperglycemia Qualified Codes: E11.65 - Type 2 diabetes mellitus with hyperglycemia VIOLETA GARCIAS MD Oct 26, 2017 13:06
--- NOTE | 2017-10-26 13:08 | Miscellaneous Provider Note ---
Miscellaneous Provider Note Note Will re-start on spironolactone at lower dose (25mg BID) for persistent lower extremity edema, most likely related to his liver disease secondary to previous alcohol use. Will plan on re-check of his electrolytes in a few days. MALIK BARRERA MD Oct 26, 2017 13:08
[2017-10-26] MEDS: SPIRONOLACTONE 25 MG TAB PO SCH (14:16)
--- NOTE | 2017-10-26 14:27 | HISTORY AND PHYSICAL ---
DATE OF ADMISSION: October 24, 2017 Patient was seen in the a.m. of 25 October 2017 for note concerning this dictation at approximately 1200 hours. CHIEF COMPLAINT [*] HISTORY OF PRESENT ILLNESS [*] PAST MEDICAL HISTORY * [*] PAST SURGICAL HISTORY * [*] ALLERGIES [*] CURRENT MEDICATIONS * [*] SOCIAL HISTORY [*] FAMILY HISTORY [*] REVIEW OF SYSTEMS [*] PHYSICAL EXAMINATION [*] LABORATORY DATA [*] ASSESSMENT * [*] PLAN [*] MTDD
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
[2017-10-26 21:17] VITALS: BP 94/68
[2017-10-26] MEDS: traZODone HCL 50 MG TAB PO PRN (22:08)
[2017-10-27 03:21] VITALS: BP 90/52
[2017-10-27] MEDS: TRIAMCINOLONE ACE 0.1% CR 80GM TP SCH (08:19)
[2017-10-27] MEDS: metFORMIN HCL 500 MG TAB PO SCH (08:19)
[2017-10-27] MEDS: MULTIVITAMINS PO SCH (08:20)
[2017-10-27] MEDS: SPIRONOLACTONE 25 MG TAB PO SCH (08:20)
[2017-10-27] MEDS: glipiZIDE 5 MG TAB PO SCH (08:20)
[2017-10-27] MEDS: THIAMINE HCL 100 MG TAB PO SCH (08:20)
[2017-10-27] MEDS: INSULIN HUM LISPRO 100 UN/ML 3 ML VIAL SUBQ PRN ×2 (08:23→10:56)
[2017-10-27] MEDS ORDERED: FOLIC ACID/CYANOCOB/PYRIDOXINE PO SCH (09:00)
[2017-10-27] MEDS ORDERED: GLIP-130 PO (10:20)
[2017-10-27] MEDS ORDERED: B12/1TAB PO (10:20)
[2017-10-27] MEDS ORDERED: SITA100T PO (10:21)
[2017-10-27] MEDS ORDERED: TRIA15OI20 TP (10:24)
[2017-10-27] MEDS ORDERED: TRIA15CR40 TP (10:30)
[2017-10-27] MEDS ORDERED: MULT-1379 PO (10:31)
[2017-10-27] MEDS ORDERED: INSU100V24 SQ (10:32)
[2017-10-27 11:54] VITALS: BP 119/79
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
== END 2017-10-27 11:08 | disposition home or self-care (01) | DRG 884 ==
LOC: BHS 18:00
PROVIDERS: ADMIT Psychiatry & Neurology Psychiatry; ATTEND Psychiatry & Neurology Psychiatry
DX: F09 Unspecified mental disorder due to known physiological condition (principal); E11.65 Type 2 diabetes mellitus with hyperglycemia; R60.0 Localized edema; K70.9 Alcoholic liver disease, unspecified; F10.21 Alcohol dependence, in remission; Z59.0 Homelessness
CPT/HCPCS: 36416; 82948; 93005

== ENCOUNTER → 2017-11-03 | Outpatient (CLI) | payer OTHER ==
[2017-10-22 13:22] VITALS: BMI 21.7
[~2017-11-03] MED LIST changes: +B12/1TAB PO; +GLIP-130 PO; +INSU100V24 SQ; +MULT-1379 PO; +SITA100T PO; -SPIR25TA78 PO; +SPIR25TA80 PO; +TRIA15CR40 TP; +TRIA15OI20 TP
== END ==
LOC: LAB 11:40
PROVIDERS: ATTEND Internal Medicine Pulmonary Disease
DX: K72.90 Hepatic failure, unspecified without coma (principal); R18.8 Other ascites
CPT/HCPCS: 36415; 82040; 82247; 82310; 82374; 82435; 82565; 82947; 84075; 84132; 84155; 84295; 84450; 84460; 84520